=== PATIENT | female | born 1985 | race African-American/Black ===

== ENCOUNTER 2019-12-30 21:18 | Emergency (ER) | payer BC ==
[~2019-12-30] VITALS: Ht 167.6 cm; Wt 61.2 kg
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
--- NOTE | 2019-12-30 23:16 | Diagnostic Imaging Report ---
XRAY LEFT RIBS W/CXR - 3 views HISTORY: Pain. Trauma COMPARISON: None available. FINDINGS: No acute displaced rib fractures. Osseous alignment is within normal limits. The heart is normal size. Pulmonary vasculature is within normal limits. No consolidation. No pleural effusion. No pneumothorax. IMPRESSION: 1. No acute displaced rib fractures. 2. No acute intrathoracic abnormality. Signed by: Richie Perla MD on 12/30/2019 11:13 PM
== END 2019-12-30 23:54 | disposition home or self-care (01) ==
LOC: ER 21:35
DX: S20.212A Contusion of left front wall of thorax, initial encounter (principal); W22.8XXA Striking against or struck by other objects, initial encounter
CPT/HCPCS: 71101; 99283